=== PATIENT | male | born 1945 | race Caucasian/White ===

== ENCOUNTER 2020-03-09 07:09 | Emergency (ER) | payer MEDICARE, OTHER ==
[2020-03-09 10:23] LABS: ABSOLUTE BASOPHILS # (AUTO) 0.1 10^3/uL (0.0-0.2); ABSOLUTE EOSINOPHILS # (AUTO) 0.1 10^3/uL (0.0-0.6); ABSOLUTE LYMPHOCYTES (AUTO) 1.3 10^3/uL (0.5-4.7); ABSOLUTE MONOCYTES (AUTO) 1.1 10^3/uL (0.1-1.4); ABSOLUTE NEUT (AUTO) 11.8 10^3/uL (1.7-8.2); BASOPHILS % (AUTO) 0.5 % (0-2); EOSINOPHILS % (AUTO) 0.6 % (0-6); HEMATOCRIT 33.4 % (37.9-51.0); HEMOGLOBIN 10.9 g/dL (13.5-17.0); LYMPHOCYTES % (AUTO) 9.1 % (13-45); MEAN CORPUSCULAR HEMOGLOBIN 25.5 pg (27.0-33.4); MEAN CORPUSCULAR HGB CONC 32.6 g/dL (32.0-36.0); MEAN CORPUSCULAR VOLUME 78 fl (80-97); MONOCYTES % (AUTO) 7.5 % (3-13); PLATELET COUNT 227 10^3/uL (150-450); RED BLOOD COUNT 4.26 10^6/uL (4.35-5.55); RED CELL DISTRIBUTION WIDTH 15.5 % (11.5-14.0); SEGMENTED NEUTROPHILS % (AUTO) 82.3 % (42-78); TOTAL CELLS COUNTED % (AUTO) 100 %; WHITE BLOOD COUNT 14.3 10^3/uL (4.0-10.5)
--- NOTE | 2020-03-09 10:34 | RADIOLOGY REPORT (SQ) ---
EXAM DESCRIPTION: CHEST SINGLE VIEW IMAGES COMPLETED DATE/TIME: 03/09/2020 10:11 am REASON FOR STUDY: difficulty breathing COMPARISON: None. EXAM PARAMETERS: NUMBER OF VIEWS: One view. TECHNIQUE: Single frontal radiographic view of the chest acquired. RADIATION DOSE: NA LIMITATIONS: None. FINDINGS: LUNGS AND PLEURA: No opacities, masses or pneumothorax. Several small round densities mos t likely are blood vessels. No pleural effusion. MEDIASTINUM AND HILAR STRUCTURES: No masses. Contour normal. HEART AND VASCULAR STRUCTURES: Heart upper limits of normal in size. Normal vasculature. BONES: No acute findings. HARDWARE: None in the chest. OTHER: No other significant finding. IMPRESSION: NO ACUTE RADIOGRAPHIC FINDING IN THE CHEST. TECHNICAL DOCUMENTATION: JOB ID: [id number] 2010 [email or web address]- All Rights Reserved Reading location - IP/workstation name: [email or web address]
[2020-03-09 10:36] LABS: ALBUMIN 3.8 g/dL (3.5-5.0); ALKALINE PHOSPHATASE 61 U/L (38-126); ANION GAP 9 (5-19); ASPARTATE AMINO TRANSFERASE 24 U/L (17-59); BILIRUBIN,DIRECT 0.3 mg/dL (0.0-0.4); BILIRUBIN,TOTAL 0.7 mg/dL (0.2-1.3); BLOOD UREA NITROGEN 17 mg/dL (7-20); CALCIUM 8.8 mg/dL (8.4-10.2); CARBON DIOXIDE 28 mmol/L (22-30); CHLORIDE 103 mmol/L (98-107); GLUCOSE 138 mg/dL (75-110); POTASSIUM 4.1 mmol/L (3.6-5.0); TOTAL PROTEIN 6.7 g/dL (6.3-8.2)
[2020-03-09] MEDS ORDERED: PREDNISONE 20 MG TABLET PO ONE (11:00)
[2020-03-09] MEDS ORDERED: IPRATROPIUM/ALBUTEROL 0.5-2.5 MG/3 ML AMPUL NEB ONE (11:01)
[2020-03-09] MEDS ORDERED: ALBUTEROL SULFATE 0.083% NEB 2.5 MG/3 ML AMPUL NEB ONE (11:48)
[2020-03-09 11:55] LABS: APPEARANCE,URINE SLIGHTLY-CLOUDY; BILIRUBIN,URINE NEGATIVE (NEGATIVE); COLOR,URINE YELLOW; GLUCOSE, URINE NEGATIVE (NEGATIVE); KETONES,URINE NEGATIVE (NEGATIVE); LEUKOCYTE ESTERASE,URINE NEGATIVE (NEGATIVE); NITRITE,URINE NEGATIVE (NEGATIVE); PROTEIN,URINE NEGATIVE (NEGATIVE); UROBILINOGEN,URINE NEGATIVE mg/dL (<2.0)
--- NOTE | 2020-03-09 11:58 | ER Document Report ---
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 Patient mentions that he has had a cough but adds that he coughs every day and has for quite some time. Patient states his cough is worse at night. Patient has been prescribed inhalers for the last 3 years but does not have a nebulizer and states he has never been put on prednisone. - Related Data Allergies/Adverse Reactions: No Known Allergies Allergy (Verified 03/09/20 08:16) Home Medications: insulin. htn. prozac. statin Past Medical History - General Information source: Patient - Social History Smoking Status: Former Smoker - quit in 1989 Cigarette use (# per day): No Chew tobacco use (# tins/day): No Frequency of alcohol use: Occasional Drug Abuse: None Lives with: Family Family History: Reviewed & Not Pertinent Patient has homicidal ideation: No Pulmonary Medical History: Reports: Hx COPD, Other - Emphysema Endocrine Medical History: Reports: Hx Diabetes Mellitus Type 2 - insulin Psychiatric Medical History: Reports: Hx Depression Past Surgical History: Reports: Other - Melanoma removed, lymph nodes removed from left neck Review of Systems - Review of Systems Constitutional: No symptoms reported EENT: No symptoms reported Cardiovascular: No symptoms reported Respiratory: See HPI, Cough, Short of breath Gastrointestinal: No symptoms reported Genitourinary: No symptoms reported Male Genitourinary: No symptoms reported Musculoskeletal: No symptoms reported Skin: No symptoms reported Hematologic/Lymphatic: No symptoms reported Neurological/Psychological: No symptoms reported -: Yes All other systems reviewed and negative Physical Exam - Vital signs Vitals: Temp Pulse Resp BP Pulse Ox 99.9 F 108 H 28 H 143/68 H 90 L 03/09/20 08:17 03/09/20 08:17 03/09/20 08:17 03/09/20 08:17 03/09/20 08:17 - Notes Notes: Physical Exam: General: Alert, appears well. HEENT: Normocephalic. Atraumatic. PERRL. Extraocular movements intact. Orophar ynx clear. Neck: Supple. Non-tender. Respiratory: Mild respiratory distress. Prolonged expiratory phase, slight rhonchi bilaterally. Cardiovascular: Regular rate and rhythm. Abdominal: Obese. Non-tender. No distension. Normal Bowel Sounds. Back: No gross abnormalities. Extremities: Moves all four extremities. Upper extremities: Normal inspection. Normal ROM. Lower extremities: Normal inspection. No edema. Normal ROM. Neurological: Normal cognition. AAOx4. Normal speech. Psychological: Normal affect. Normal Mood. Skin: Warm. Dry. Normal color. Course - Re-evaluation Re-evalutation: 03/09/20 13:32 The patient was evaluated during the global COVID-19 pandemic and that diagnosis was suspected/considered upon their initial presentation. Their evaluation, treatment and testing was consistent with current guidelines for patients who present with complaints or symptoms that may be related to COVID-19. Patient reports his breathing does feel somewhat better after the nebulizer treatments. He has noted that his breathing seems to be better when he is blowing out against pursed lips. On auscultation the expiratory phase is not quite as long and the wheezes are less loud. Patient does have a leukocytosis, so due to his respiratory symptoms, somewhat significant COPD with emphysema, he will be put on doxycycline along with prednisone to help get him through this COPD exacerbation. - Vital Signs Vital signs: Temp Pulse Resp BP Pulse Ox 99.8 F 108 H 26 H 126/90 H 97 03/09/20 14:00 03/09/20 08:17 03/09/20 15:01 03/09/20 16:00 03/09/20 16:01 - Laboratory Result Diagrams: 03/09/20 09:38 03/09/20 09:38 Laboratory results interpreted by me: 03/09/20 03/09/20 03/09/20 09:38 09:38 16:49 WBC 14.3 H RBC 4.26 L Hgb 10.9 L Hct 33.4 L MCV 78 L MCH 25.5 L RDW 15.5 H Lymph % (Auto) 9.1 L Absolute Neuts (auto) 11.8 H Seg Neutrophils % 82.3 H Glucose 138 H POC Glucose 212 H - Diagnostic Test Radiology reviewed: Image reviewed, Reports reviewed - Chest x-ray shows COPD without acute infiltrate - EKG Interpretation by Me EKG shows normal: Sinus rhythm, [place], Intervals, QRS Complexes, ST-T Waves Rate: Tachycardia - 100 - Consults Dr. Cadena Time consulted: 16:05 Consulted provider: will come to ER Critical Care Note - Critical Care Note Total time excluding time spent on procedures (mins): 35 Comments: At least 35 minutes spent getting history and physical and evaluation patient. Several trips back to check on him to gauge response to treatment. Finding indeterminate troponin with a negative EKG and noted chest pain. Repeating troponin finding it had tripled indicating a non-STEMI. Discussing the findings and implications with the patient. Discussing the case with the on-call engine designer and hospitalist to start the admission process. Discharge - Discharge Clinical Impression: COPD with exacerbation, Encounter for laboratory testing for COVID-19 virus, Non-STEMI (non-ST elevated myocardial infarction) Emphysema lung Qualifiers: Emphysema type: unspecified Qualified Code(s): J43.9 - Emphysema, unspecified Condition: Stable Disposition: ADMITTED INPATIENT Admitting Provider: Patty (Hospitalist) Unit Admitted: IMCU I personally performed the services described in the documentation, reviewed and edited the documentation which was dictated to the scribe in my presence, and it accurately records my words and actions.
[2020-03-09 12:24] LABS: A TYPE INFLUENZA AG NEGATIVE (NEGATIVE); B INFLUENZA AG NEGATIVE (NEGATIVE)
[2020-03-09] MEDS ORDERED: ASPIRIN 81 MG TABLET, CHEWABLE PO ONE (15:07)
[2020-03-09] MEDS ORDERED: CLOPIDOGREL BISULFATE 300 MG TABLET PO ONE (15:08)
[2020-03-09] MEDS ORDERED: ENOXAPARIN SODIUM INJ 120 MG/0.8 ML DISP.SYRIN SUBCUT ONE (15:12)
[2020-03-09 16:07] VITALS: BP 126/90
--- NOTE | 2020-03-09 17:11 | Progress Note ---
Provider Note Provider Note: I was asked to admit this pleasant 74-year-old gentleman for an exacerbation of COPD as well as positive troponins. When I arrived in the emergency department the nurses alerted me that the patient wanted to leave AGAINST MEDICAL ADVICE. I did take the opportunity to sit with the patient to discuss his decision. The patient has a history of diabetes in addition to his COPD. He had increasing shortness of breath but denied any chest pain. He was afebrile but had an elevated white count of 14.3 with a hemoglobin of 10.9 and a platelet count of 227. Serum chemistries were unremarkable with the exception of a slightly elevated glucose at 138 and an initial troponin of 0.108 followed by a second troponin at 0.324. EKGs did not show any ST changes. The patient has hypertension. During his time the emergency department the systolic blood pressure was generally between 140 and 165. The diastolic pressure ranged from about 68-85. The patient remarked that he was in for what he thought was an exacerbation of COPD and all of a sudden someone comes in and said the problem with your heart. He did not understand. I took the opportunity to explain to him about troponins. In addition to cardiac there are several other reasons to have an elevated troponin. We reviewed the fact that he does not have a known cardiac history but that he does have risk factors. I explained that the primary reason to obtain these tests is to evaluate for any damage of the heart. There are several other conditions that can increase your troponin levels. I explained that in addition to blood work the next and more important step would be a stress test. The patient sees Dr. Morales in the [facility] clinic. The patient at least acknowledge the fact that he absolutely has to call Dr. Morales tomorrow. I also notified him that [facility] does have a candle maker locally. I stressed the need to not exert himself tonight. I also suggested that he take 4 baby aspirin instead of the 1 aspirin nightly. The patient reported that he is diabetic and had nothing to eat all day. He was feeling shaky. Prior to discharge I did asked the nurses to obtain an Accu-Chek and either discussed with the emergency department physician or call me if intervention is necessary. After reviewing all of this I again asked the patient about his intention. He stated that he did in fact wish to go home. He appreciated the informative discussion but I was unable to persuade him to stay.
--- NOTE | 2020-03-09 21:53 | EKG REPORT ---
SEVERITY:- OTHERWISE NORMAL ECG - SINUS TACHYCARDIA : Confirmed by: Jhon Caldwell 09-Mar-2020 21:52:07
--- NOTE | 2020-03-09 21:53 | EKG REPORT ---
SEVERITY:- ABNORMAL ECG - SINUS RHYTHM : Confirmed by: Jhon Caldwell 09-Mar-2020 21:52:01
== END 2020-03-09 17:09 | disposition other institution (70) ==
LOC: ER 07:09
DX: I21.4 Non-ST elevation (NSTEMI) myocardial infarction (principal); J44.1 Chronic obstructive pulmonary disease with (acute) exacerbation; J43.9 Emphysema, unspecified; R06.02 Shortness of breath; Z20.828 Contact with and (suspected) exposure to other viral communicable diseases; E11.9 Type 2 diabetes mellitus without complications; Z79.4 Long term (current) use of insulin
CPT/HCPCS: 93005; 94640 ×2; 99285; 96372; 36415; 87040; 82962; 82550; 85025; 87077; 80053; 81001; 84484; 87804; 87150 ×26; 71045; 93010; U0003; A9270 ×4; J1650; C9803; 87186; 87635; J3490; J7512; J7613